=== PATIENT | female | born 1970 | race Caucasian/White ===

== ENCOUNTER 2016-07-02 11:52 | Emergency (ER) | payer MEDICAID ==
[~2016-07-02] VITALS: Ht 157.5 cm; Wt 70.5 kg
[2016-07-02] MEDS ORDERED: LIDOCAINE HCL BUFFERED 1% W/EPI 1:100,000 20 ML VIAL INJ ONE (13:00)
[2016-07-02] MEDS ORDERED: PredniSONE 20 MG TABLET PO ONE (13:30)
[2016-07-02] MEDS ORDERED: HYDROCODONE/ACETAMINOPHEN 5-325 MG TABLET PO ONE (13:30)
[2016-07-02] MEDS ORDERED: AMOX TR/POT CLAV 875 MG/125 MG TABLET PO ONE (13:30)
[2016-07-02] MEDS ORDERED: MORPHINE SULFATE 4 MG/ML SYRINGE IM ONE (15:00)
[2016-07-02 15:46] VITALS: BP 136/71
== END 2016-07-02 15:53 | disposition home or self-care (01) ==
LOC: EMS 11:53
DX: J36 Peritonsillar abscess (principal); Z88.6 Allergy status to analgesic agent
CPT/HCPCS: 42700; 87430; 96372; 99284; J2270; J3490; J7512; 99283

== ENCOUNTER 2016-08-01 03:38 | Emergency (ER) | payer MEDICAID ==
[~2016-08-01] VITALS: Ht 154.9 cm; Wt 70.5 kg
[2016-08-01] MEDS ORDERED: HydrOXYzine PAMOATE 25 MG CAPSULE PO ONE (07:15)
[2016-08-01 07:56] VITALS: BP 118/60
== END 2016-08-01 07:57 | disposition home or self-care (01) ==
LOC: EMS 03:39
DX: F41.9 Anxiety disorder, unspecified (principal); Z88.6 Allergy status to analgesic agent
CPT/HCPCS: 99283

== ENCOUNTER 2018-05-22 12:50 | Emergency (ER) | payer MEDICAID ==
[~2018-05-22] VITALS: Ht 160 cm; Wt 70.5 kg
[2018-05-22] MEDS ORDERED: SERT100T12 PO (12:57)
[2018-05-22 15:36] LABS: INFLUENZA TYPE A POSITIVE FOR TYPE A (NEGATIVE); INFLUENZA TYPE B NEGATIVE FOR TYPE B (NEGATIVE)
[2018-05-22] MEDS ORDERED: ONDANSETRON HCL 4 MG TABLET PO ONE (16:15)
[2018-05-22] MEDS ORDERED: IBUPROFEN 800 MG TABLET PO ONE (16:15)
[2018-05-22 16:23] VITALS: BP 118/91
== END 2018-05-22 16:25 | disposition home or self-care (01) ==
LOC: EMS 12:52
DX: J11.1 Influenza due to unidentified influenza virus with other respiratory manifestations (principal); H92.02 Otalgia, left ear; M79.10 Myalgia, unspecified site; Z88.6 Allergy status to analgesic agent; Z88.0 Allergy status to penicillin
CPT/HCPCS: 87804; 99283; Q0162